=== PATIENT | male | born 1975 | race African-American/Black ===

== ENCOUNTER 2020-05-16 22:11 | Emergency (ER) | payer BC, OTHER ==
[~2020-05-16] VITALS: Ht 172.7 cm; Wt 72.6 kg
[~2020-05-16 22:11] MED LIST: ERYTHROMYCIN E3.5 G1 OP; IBUPROFEN 800800 M1 PO; NORCO 5-325 TA1 EACH PO
[2020-05-16] MEDS ORDERED: PREDNISONE 10 M10 M1 PO (23:10)
[2020-05-16 23:25] VITALS: BP 144/92
== END 2020-05-16 23:26 | disposition home or self-care (01) ==
LOC: ER 22:11
DX: L23.4 Allergic contact dermatitis due to dyes (principal); F17.210 Nicotine dependence, cigarettes, uncomplicated